=== PATIENT | female | born 1995 | race Caucasian/White ===

== ENCOUNTER 2024-10-23 14:09 | Emergency (ER) | payer SELFPAY ==
--- OUTSIDE RECORDS SUMMARY | 2013-03-25 11:13 | XMS_ITS | Continuity of Care Document ---
Author Organization [facility] Address [address] [place] [id number] Phone Care Team Providers Care Infantry Indirect Fire Crewmember Name Role Phone Yordan Sheets MD Unavailable Unavailable Allergies, Adverse Reactions, Alerts Substance Reaction Status Criticality No Known allergies Medications Medication Instructions Dosage Effective Dates (start - stop) Status Comments Zomig 2.5 mg tablet take 1 tablet (2.5MG ) by oral route once; if headache returns, the dose may be repeated after 2 hours, not to exceed 10 mg within 24 hours 2.5 MG - Active Procedures Procedure Date OFFICE/OUTPATIENT VISIT, EST OFFICE/OUTPATIENT VISIT, EST EEG, AWAKE AND DROWSY OFFICE/OUTPATIENT VISIT, NEW Advance Directives Directive Yes / No Effective Date File Name No Information Encounters Encounter Description Practice Location Reason(s) For Visit Diagnoses Date Provider Providers Copied on Encounter Yordan Sheets M.D., P.A., [address] [place] [address], [id number], tel:[phone] Yordan Sheets M.D., P.A. [place] No Information Sudeep Farr. [address] [place] [address], [id number], . tel:[phone] OFFICE/OUTPATI ENT VISIT, EST Yordan Sheets M.D., P.A., [address] [place] [address], [id number], tel:[phone] Yordan Sheets M.D., P.A. [facility] Sudeep Farr. [address] [place] [address], [id number], [place]. tel:[phone] Referring Provider: Mirian jon [place], [place]. OFFICE/OUTPATI ENT VISIT, EST Yordan Sheets M.D., P.A., [address] [place] [address], [id number], tel:[phone] Yordan Sheets M.D., P.A. [place] eeg (chief complaint) [facility] Sude[facility]. [address] [place] [address], [address] [place] [address], [place]. tel:[phone] Referring Provider: [facility] [place] Yrodan Sheets M.D., P.A., [address] [place] [address], [address] [place] [address], tel:[phone] Yordan Sheets M.D., P.A. [place] No Information Sudeep Farr. [address] [place] [address], [id number], [place]. tel:[phone] Referring Provider: [place] OFFICE/OUTPATI ENT VISIT, NEW Yordan Sheets M.D., P.A., [address] [place] [address], [id number], tel:[phone] Yordan Sheets M.D., P.A. [place] seizure (new) (chief complaint) No Information Sudeep Farr. [address] [place] [address], [id number], [place]. tel:[phone] Referring Provider: [place], [place], [place]. Family History Family Member Type Diagnosis Age At Onset Mother Problem (finding) Alive and well Brother Problem (finding) Alive and well Father Problem (finding) Alive and well Payers Payer name Insurance type Covered republican ID Authoriza tion(s) [facility] [id number] Social History Type Description Quantity Date Captured Comments Sex Female Smoking Status No Information Chief Complaint And Reason For Visit No Information Reason For Referral Reason For Referral No Information History Of Present Illness Encounter Date Complaint History Of Prese nt Illness No Information Functional Status Date Functional Assessmen t No Information Instructions Date Instruction Additional Infor stanislav Call if symptoms persist Assessments Type Assessment Date No Information Patient Care Teams Name Effective Dates (start - stop) Status Members No Information
--- NOTE | ~2024-10-23 | US_ITS ---
EXAMINATION: US OB limited DATE: 10/23/2024 14:52 INDICATION: Vaginal bleeding during second trimester TECHNIQUE: Real-time ultrasound of the pelvis was performed. The interpreting radiologist was not present for the study. COMPARISON: None. FINDINGS: There is a single living fetus in breech presentation. The placenta is anterior fundal. There is a 2.1 x 0.5 cm hypoechoic region along the deep margin along the caudal placenta consistent with subchorionic hematoma. heart rate is 144 beats per minute (bpm). The amniotic fluid volume is subjectively normal. IMPRESSION: 1. Single living fetus in breech presentation with heart rate of 144 bpm. 2. 2.1 x 0.5 cm subchorionic hematoma along the caudal margin of the placenta. Reviewed, dictated and finalized at location A.
--- NOTE | 2024-10-23 14:13 | ED_ITS ---
HPI - Female Genitourinary General Chief complaint: Vaginal Bleeding Stated complaint: Bleeding Time Seen by Provider: 10/23/24 14:13 History of Present Illness HPI Narrative: 29-year-old female with her 1st of 19 weeks was recently admitted to [facility] from 10/16/2024 to 10/22/2024 for questionable placental detachment. Today the patient passed a -- large blood clot vaginally. It measured around the size of her palm. Subsequently the patient has been having some bloody secretions. No abdominal pain/ cramps. No back pain. No abdominal tenderness. MD elicited complaint: vaginal bleeding Pertinent past history: other ( ) Onset (ago): hour(s) ( 8 hours) Vaginal bleeding: moderate Exacerbating factors: none Relieving factors: none Associated symptoms: denies other symptoms Treatment prior to arrival: none Patient : Yes Related Data : 1 Allergies Allergy/AdvReac Type Severity Reaction Status Date / Time No Known Allergies Allergy Verified 10/23/24 14:13 Review of Systems 2 Review of Systems: All systems reviewed & are unremarkable except as noted in HPI and below Exam 2 Narrative: blood pressure I 15/80 heart rate of 102. Const: General: no acute distress Orientation/consciousness: patient oriented x3 Limitations: no limitations HENMT: Head: normal to inspection Ears: external ears normal F mary jo/Nose/Sinus: Normal external nose present Face and sinus: normal facial exam Mouth: Yes Normal oral and palatal mucosa present Throat: posterior oropharynx normal Eyes: Conjunctivae: conjunctivae normal Pupils: Equal, round and reactive pupils present EOM: EOMs intact bilaterally Direct Ophthalmoscopy: no photophobia Neck: Neck: normal visual inspection, no lymphadenopathy and no meningeal signs Chest: Chest palpation & inspection: normal inspection of the chest Resp: Effort & Inspection: normal respiratory effort Auscultation: clear to auscultation bilaterally Cardio: Rate: regular rate Rhythm: regular rhythm GI: Inspection: distended GI Palp: Yes Soft to palpation Other: Gravid uterus at the level of the umbilicus. Nontender FHS 150 : General: Yes no CVA tenderness Back/Spine/Pelvis: Back: no CVA tenderness Skin: General skin exam: normal color Rashes: no rashes Neuro: General: patient oriented x3, moves all extremities, no meningeal signs, no focal motor deficits and CN's II-XI intact bilaterally Cranial nerves: Yes Nystagmus not present Speech: normal speech Gait exam (Neuro): Normal gait present Extrem: General: normal to inspection and no clubbing, cyanosis or edema Psych: Appearance: grossly normal Mental Status: mental status grossly normal Affect: normal affect Attitude: cooperative Course Course Emergency Course: threatened miscarriage Placental separation-- ultrasound revealed 2.1 cm X 0.5 cm subchorionic hematoma at the caudal edge of the placenta. anemia-- 9.8/28.3 Vital Signs Vital signs: Vital Signs Temperature 36.8 C 10/23/24 14:14 Pulse Rate 102 H 10/23/24 14:14 Respiratory Rate 20 10/23/24 14:14 Blood Pressure 115/80 10/23/24 14:14 Pulse Oximetry 98 10/23/24 14:14 Oxygen Delivery Room Air 10/23/24 14:14 Temperature 36.7 C 10/23/24 14:55 Pulse Rate 87 10/23/24 14:55 Respiratory Rate 20 10/23/24 14:55 Blood Pressure 115/73 10/23/24 14:55 Pulse Oximetry 100 10/23/24 14:55 Oxygen Delivery Room Air 10/23/24 14:55 MDM - Female Genitourinary MDM Narrative Medical decision making narrative: placental separation/subchorionic hematoma threatened miscarriage anemia Differential Diagnosis Differential diagnosis: Likely other ( miscarriage, placenta previa) Medical Records Attestation: I reviewed the patient's medical records. Lab Data Attestation: I reviewed the patient's lab results. 10/23/24 15:38 10/23/24 15:38 Labs: Lab Results 10/23/24 10/23/24 Range/Units 14:55 15:38 WBC 12.4 H (4.8-10.8) K/mm3 RBC 3.17 L (4.20-5.40) M/mm3 Hgb 9.8 L (12.0-15.0) g/dL Hct 28.3 L (35.0-49.0) % MCV 89.3 (78.0-102.0) fL MCH 30.9 (27.0-31.0) pg MCHC 34.6 (32-36) g/dL RDW 12.9 (11.6-14.4) % Plt Count 274 (150-420) K/mm3 MPV 10.0 (9.2-11.8) fl Immature Gran % (Auto) 0.3 H (0.0-0.0) % Neut % (Auto) 79.6 H (50.0-70.0) % Lymph % (Auto) 14.2 L (18.0-42.0) % [place] % (Auto) 5.2 (2.0-11.0) % Eos % (Auto) 0.5 L (1.0-6.0) % Baso % (Auto) 0.2 (0.0-1.0) % Lymph # (Auto) 1.75 (1.10-4.50) K/mm3 [place] # (Auto) 0.64 (0.10-0.90) K/mm3 Eos # (Auto) 0.06 (0.02-0.50) K/mm3 Baso # (Auto) 0.03 (0.00-0.10) K/mm3 Abs Immat Gran (auto) 0.04 H (0.00-0.00) K/mm3 Absolute Neuts (auto) 9.84 H (1.70-7.20) K/mm3 Absolute Nucleated RBC 0.00 (0.00-0.00) K/mm3 Nucleated RBC % 0.0 (0-0.0) % Sodium 137 (137-145) mmol/L Potassium 3.8 (3.4-5.0) mmol/L Chloride 105 (98-107) mmol/L Carbon Dioxide 23 (22-30) mmol/L Anion Gap 9 (4-12) mmol/L BUN 6 L (7-17) mg/dL Creatinine 0.36 L (0.7-1.0) mg/dL Estim Creat Clear Calc 147 ml/min Estimated GFR > 60 (59 - ) Glucose 79 (65-110) mg/dL Calculated Osmolality 280 L (285-295) mOsm/kg Calcium 9.2 (8.4-10.2) mg/dL Total Bilirubin 0.7 (0.2-1.3) mg/dL AST 30 (14-36) U/L ALT 11 (6-35) U/L Alkaline Phosphatase 48 (38-126) U/L Total Protein 6.9 (6.3-8.2) g/dL Albumin 3.8 (3.5-5.1) g/dL Urine Color Light yellow (Yellow) Urine Appearance Clear (Clear) Urine pH 6.5 (5.0-8.0) Ur Specific [place] 1.020 (1.010-1.020) Urine Protein Negative (Negative) Urine Glucose (UA) Negative (Negative) Urine Ketones 1+ H (Negative) Ur Blood (Man) 2+ H (Negative) Urine Nitrate Negative (Negative) Urine Bilirubin Negative (Negative) Urine Urobilinogen 0.2 (0.2-1.0) mg/dL Leukocyte Esterase Rfl Negative (Negative) FRANCISCO/UL Urine RBC 6-10 H (0-2) /hpf Urine WBC None seen (0-3) /hpf Ur Squamous Epith Cells Few (Few) /hpf Urine Bacteria Trace (None) /hpf Urine Mucus Moderate H /lpf Discharge Plan Discharge Clinical Impression: Threatened Placental separation Qualifiers: Trimester: second trimester Qualified Code(s): O45.92 - Premature separation of placenta, unspecified, second trimester Anemia affecting Qualifiers: Trimester: second trimester Qualified Code(s): O99.012 - Anemia complicating , second trimester Patient Disposition: Home Condition: Stable Instructions: Antibiotic Form, Threatened Miscarriage (ED) Patient Language: Croatian Follow-up/Referrals: UNKNOWN,DOCTOR [Non-Staff] Time of Disposition: 16:04
[2024-10-23 14:14] VITALS: BP 115/80; PULSE 102; RESP 20; TEMP 36.8; O2SAT 98
[2024-10-23 14:55] VITALS: BP 115/73; PULSE 87; RESP 20; TEMP 36.7; O2SAT 100
[2024-10-23 15:08] LABS: Add Urine Microscopic? YES; Appearance Urine Clear (Clear); Glucose Urine UA Negative (Negative); Leukocyte Esterase Ur Negative LEU/UL (Negative); Nitrate Urine Negative (Negative); Specific Grav Ur 1.020 (1.010-1.020)
--- OUTSIDE RECORDS SUMMARY | 2024-10-23 15:12 | XMS_ITS | Encounter Summary ---
Author Organization [facility] Healthcare Address [address] [place] [address] Care Team Providers Care Cabinetmaker Helper Name Role Phone Unknown, Notinfile Primary Care Provider Unavail able Encounter Details Date Type Department Care Team (Late st Contact Info) Description 10/23/2024 Telephone Obstetrics and Gynecology Clinic [address] [facility] 3rd Floor [address] [place] [address] Shawna Duke Social History Tobacco Use Types Packs/Day Years Used Date Smoking Tobacco: Never Smokeless Tobacco: Never Alcohol Use Standard Drinks/Week Comments Never 0 (1 standard drink = 0.6 oz pur e alcohol) PHQ-2 Answer Date Recorded PHQ-2 Total Score (If total score is 3 or more points, staff should administer the PHQ-9) 0 10/19/2024 PHQ-9 Answer Date Recorded PHQ-9 Total Score 0 10/19/2024 Humiliation, Afraid, Rape, and Kick questionnair e Answer Date Recorded Within the last year, have y ou been afraid of your partner or ex-partner? No 10/19/2024 Within the last year, have y ou been humiliated or emotionally abused in other ways by your partner or ex-partner? No Within the last year, have y ou been kicked, hit, slapped, or otherwise physically hurt by your partner or ex-partner? No 10/19/2024 Within the last year, have y ou been raped or forced to have any kind of sexual activity by your partner or ex-partner? No 10/19/2024 Social Connection and Isolation Panel Answer Date Recorded In a typical week, how many times do you talk on the phone with family, friends, or neighbors? More than three times a week 10/19/2024 How often do you get togethe r with friends or relatives? Three times a week 10/19/2024 How often do you attend chur ch or restorationism services? Never 10/19/2024 Do you belong to any clubs o r organizations such as gnosticist groups, unions, fraternal or athletic groups, or school groups? No 10/19/2024 How often do you attend meet ings of the clubs or organizations you belong to? Never 10/19/2024 Are you , , di vorced, , never , or living with a partner? 10/19/2024 AUDIT-C Answer Date Recorded Q1: How often do you have a drink containing alcohol? Never 10/19/2024 Q2: How many drinks containi ng alcohol do you have on a typical day when you are drinking? Patient does not drink Q3: How often do you have si x or more drinks on one occasion? Never 10/19/2024 Overall Financial Resource Strain (CARDIA) Answe r Date Recorded How hard is it for you to pa y for the very basics like food, housing, medical care, and heating? Not hard at all 10/19/2024 [facility] [place] [facility] - Occupational Stress Questionnaire Answer Date Recorded Do you feel stress - tense, restless, nervous, or anxious, or unable to sleep at night because your mind is troubled all the time - these days? Only a little 10/19/2024 Exercise Vital Sign Answer Date Recorde d On average, how many days pe r week do you engage in moderate to strenuous exercise (like a brisk walk)? 0 days 10/19/2024 On average, how many minutes do you engage in exercise at this level? 0 min 10/19/2024 Hunger Vital Sign Answer Date Recorded Within the past 12 months, y ou worried that your food would run out before you got the money to buy more. Never true 10/20/19 25 Within the past 12 months, t he food you bought just didn't last and you didn't have money to get more. Never true 10/19/2024 PRAPARE - Transportation Answer Date Re corded In the past 12 months, has l ack of transportation kept you from medical appointments or from getting medications? No 09/28 In the past 12 months, has l ack of transportation kept you from meetings, work, or from getting things needed for daily living? No 10/19/2024 Housing Stability Vital Sign Answer Markus e Recorded In the last 12 months, was t here a time when you were not able to pay the mortgage or rent on time? No 10/19/2024 In the past 12 months, how m any times have you moved where you were living? 1 10/19/2024 At any time in the past 12 m [facility], were you homeless or living in a senior care (including now)? No 10/19/2024 [facility] Utilities Answer Date Recorded In the past 12 months has th e electric, gas, oil, or water company threatened to shut off services in your home? No 10/19/2024 Personal Safety Answer Date Recorded Have you ever been in or are you currently in a harmful physical or emotional relationship or is someone making you feel afraid or unsafe? Denies 10/19/2024 Estimated Date of Delivery Comme nts Yes 03/22/2025 Based on last me nstrual period of 06/15/2024 Sex and Gender Information Value Date Recorded Sex Assigned at Not on file Legal Sex Female 9:25 PM CDT Gender Identity Not on file Sexual Orientation Not on file documented as of this encounter Miscellaneous Notes * Telephone Encounter - Shawna Duke - 10/23/2024 1:25 PM CDT Pt called stating she's experiencing heaving bleeding. Pt stated she lives [place] hour away form the [facility] and our clinic. Pt was advised to go to her local ED. Contact Number [phone] documented in this encounter Plan of Treatment Upcoming Encounters Date Type Department Care Team (Late st Contact Info) Description 03/22/2025 Hospital Encounter [address] [phone] Karin Pitt MD [address] [address] documented as of this encounter Visit Diagnoses Not on filedocumented in this encounter Care Teams Cabinetmaker Helper Relationship Specialty Start Date End Date Unknown, Notinfile PCP - General 10/18/24 documented as of this encounter
--- OUTSIDE RECORDS SUMMARY | 2024-10-23 15:13 | XMS_ITS | Clinical Summary ---
Author Organization [facility] Address [address] [place] [address] Care Team Providers Care Tin Assorter Name Role Phone Unknown, Notinfile Primary Care Provider Unavail able Allergies No known active allergies Medications PNV no.[id number] ega-3-dha 29 mg iron- 1 mg-200 mg combo pack Take by mouth Active Active Problems Problem Noted Date Diagnosed Date Premature cervical dilation in second trimester 10/18/2024 Estimated Date of Delivery Comme nts Yes 03/22/2025 Based on last me nstrual period of 06/15/2024 Encounters Date Type Department Care Team Description 10/23/2024 Telephone Obstetrics and Gynecology Clinic [address] [facility] 3rd Floor [address] [place] [id number] Lidia Dukemark 10/18/2024 9:25 PM CDT - 10/20/2024 10:59 AM CDT Hospital Encounter [address] [phone] Dante Sidhu MD Baker, Haley Elise, MD Discharge Disposition: Discharge to home or self care from Last 3 Months Surgical History Surgery Date Site/Laterality Comments CHOLECYSTECTOMY 07/29/2023 - 08/27/2023 Medical History Medical History Date Comments Anxiety Depression Social History Tobacco Use Types Packs/Day Years Used Date Smoking Tobacco: Never Smokeless Tobacco: Never Tobacco Cessation:Counseling Given: Not Answered Alcohol Use Standard Drinks/Week Comments Never 0 [...] often do you attend chur ch or yazdanism services? Never 10/19/2024 Do you belong to any clubs o r organizations such as quaker groups, unions, fraternal or athletic groups, or [...] and heating? Not hard at all 10/19/2024 [facility] ional [facility] - Occupational Stress [...] any time in the past 12 m [facility], were you homeless or living in a fdc (including now)? No 10/19/2024 [facility] Utilities Answer Date Recorded In the past 12 months has e electric, gas, oil, or water company [...] on file Sexual Orientation Not on file Obstetrics History Para Term AB IAB SAB Ectopic Multiple Livin g Live Births 1 Date Outcome GA Total Labor Labor/2nd/3rd Weight Sex Type Anes PTL Judy A1 A5 Name Clin Current Summary Episode Dates Number of Fetuses Estimated Date of Delivery 10/18/2024 - Present (10/23/2024) 03/22/2025 (set by Nicki Sierra RN on 10/18/2024 based on Last Menstrual Period on 06/15/2024) Dating Summary Based On CABRERA GA Diff Last Menstrual Period on 06/15/2024 03/22/2025 Working Ultrasound on 08/21/2024 03/26/2025 -4d GA:9w0d Vitals Date GA Fund Present FHR Mvmt BP Weight Edema Alb Glu Ket Dil/ Eff/Sta 18w1d Inpatient data not displayed here. See encounter summary. Notes Progress Notes - Hospital En counter - 10/20/2024 - GA:18w1d 10/20/2024 - 18w1d - Pia Fischer DO Antepartum Progress Note Gestational Age: 18w1d Admission Date: 10/18/2024 Length of stay: 2 Admission Diagnosis: vaginal bleeding Brief HPI: 29 y.o. female at 18w1d gestation admitted for vaginal bleeding SUBJECTIVE - Overnight, reported mild cramping that has since resolved - States she is having a small amount of bleeding when wiping, but is mostly old blood - No LOF Review of Systems Negative except as per above. OBJECTIVE Vitals: Temp Min: 36.5 C (97.7 F) Max: 36.8 C (98.3 F) Pulse Min: 72 Max: 94 BP Min: 91/51 Max: 110/62 Resp Min: 16 Max: 16 SpO2 Min: 95 % Max: 99 % FHR: +DTs Physical Exam General: No acute distress. Cardiovascular: Normal rate, regular rhythm Lungs: Non-labored. Abdomen: Soft, non-tender, gravid. Extremities: Warm and well-perfused. Pelvic: Deferred. Neurologic: Alert and oriented x4, non-focal Lab Review: Recent Results (from the past 24 hours) POCT glucose Collection Time: 10/19/24 1:02 PM Result Value Ref Range Glucose, POC 99 70 - 199 mg/dL ASSESSMENT/PLAN Keara Yin is a 29 y.o. at 18w1d admitted for vaginal bleeding #c/f Abruption #threatened #Vaginal bleeding - Presents with cramping and bleeding since 1999 on 10/18 - Cramping mild, bleeding about 1 pad over 4 hours - HDS, Hb 10.2, Plt 257 - denies recent STI, UTis - SSE: 1-1.5 cm dialted with membranes and small amount of blood at OS - SVE: 1cm dilated, soft - Counseled that given clinical information, will likely result in a loss. - Currently not indicated for cerclage given c/f abruption - Provided options counseling. Pt did not want to make any decisions at this time - GC/CT/Trich neg - UCx pending Plan: - f/u UCx - daily labs - Pad counts #Anxiety/depression - on no meds #Hx of chlamydia - s/p treatment #FWB: - BSUS: breech presentation, +DT - LR NIPT - BMZ, MG, PCN not indicated - Peds consult n/a - MONITORING PLAN: daily DT #MWB #RNI #VZV Unknown - PNL: Rh +/Ab neg/HIV neg/Rub NI/VZVunk/RPR neg/HepB neg/Hep C neg/GC/CT neg/neg - 1 hr GTT, TDAp n/a - Rhogam n/a - GBS deferred - MOD/MOF/MOC TBD - Antepartum VTE Prophylaxis: SCDs Pia Fischer DO Resident Physician, PGY-2 Department of Obstetrics & Gynecology Cosigned by Jane Nguyen MD at 10/21/2024 4:34 PM CDT Associated attestation - Jane Nguyen MD - 10/21/2024 4:34 PM CDT I have seen and examined the patient on 10/20/2024. I agree with the findings and plan of care as documented in the resident's/fellow's note. Patient admitted at 18 weeks with significant vaginal bleeding episode that appears to have resolved. Explained potential complications of placental abruption and emphasized the importance of establishing care locally. We discussed care providers in [place], [place] as being closest to her in [place]. Plan discharge home as VB is minimal, reviewed return precautions. Jane Nguyen MD 10/19/2024 - 18w0d - Little Sierra RN Pt arrived to [facility] with bleeding VSS Speculum Exam MD/DIRECT SUPPORT WORKER assessment per Suhas SOLORZANO and Vincent PGY4 Cervix visually dilated during pelvic exam IV placed via EMS Blood and urine labs drawn and sent Pt admitted to [facility] 10/19/2024 - w0d - Suhas Quezada NP Obstetrics H&P Chief Complaint: Vaginal bleeding Estimated Date of Delivery: 03/22/25 Provider: OSH Provider HPI: Keara Yin is a 29 y.o. female at 17w6d gestation, dated by L=1. Patient to [facility] with episode of vaginal bleeding that started around 7:55pm that saturated her underwear and pants with cramping. She also endorses saturating 1 pad. Patient denies contractions, LOF, SOB, headache, visual changes, or N/V. Her is complicated by Anxiety, Depression, and h/o Chlamydia. Patient Denies: [x] Contractions [x] Shortness of Breath [x] Nausea/Vomitting [] Vaginal Bleeding [x] Headache [] Abdominal Pain [x] Leaking of Fluid [x] Visual changes [x] Decreased Movement OB History Para Term AB Living 1 0 0 0 0 0 SAB IAB Ectopic Multiple Live Births 0 0 0 0 0 # Outcome Date GA Lbr Chris/2nd Weight Sex Type Anes PTL Lv 1 Current TOUR BUS DRIVER/GUIDE History: Patient's last menstrual period was 06/15/2024. History of Abnormal Pap: None STD History: chlamydia, 2016 Past Medical History: Diagnosis Date Anxiety Depression Chronic hypertension: No Diabetes: No Asthma: No Past Surgical History: Procedure Laterality Date CHOLECYSTECTOMY 07/2023 Social History Tobacco Use Smoking status: Never Smokeless tobacco: Never Substance and Sexual Activity Drug use: Never Sexual activity: Yes Partners: Male Alcohol Use: Not on file Support System: Supported by Safe at home: Yes family history is not on file. Family history of bleeding or clotting disorders: No Family history of defects, genetic disorders, or developmental delay: No No Known Allergies HOME MEDICATIONS: PNV no.58-qgbo-LX-omega-3-dha 29 mg iron- 1 mg-200 mg combo pack Review of Sys: Negative except per HPI Vitals: Temp: [36.9 C (98.4 F)] 36.9 C (98.4 F) Pulse: [88] 88 Resp: [18] 18 BP: (107)/(69) 107/69 Physical Exam: General: NAD, mood appropriate Cardiovascular: Regular rate and rhythm Pulmonary: Clear to ausculation bilaterally Abdomen: Non-tender, no guarding, or rebound tenderness Extremities: Warm and well perfused Speculum Exam: bright red blood in vaginal vault Cervix: appears dilated Monitoring: FHTs 150 bpm Labs: Unknown Lab Results Component Value Date WBC 12.08 (H) 10/18/2024 HGB 10.2 (L) 10/18/2024 HCT 29.5 (L) 10/18/2024 MCV 87.0 10/18/2024 LABPLAT 257 10/18/2024 Chemistry Lab Results Component Value Date SODIUM 138 10/18/2024 POTASSIUM 3.5 10/18/2024 CHLORIDE 104 10/18/2024 CO2 22 10/18/2024 ANIONGAP 12 10/18/2024 BUNSER 5 (L) 10/18/2024 CREATININE 0.38 (L) 10/18/2024 GLUCOSE 78 10/18/2024 CALCIUM 9.4 10/18/2024 BILITOT 0.4 10/18/2024 ALBUMIN 3.7 10/18/2024 GFRNAA >90 10/18/2024 ALKPHOS 66 10/18/2024 AST 12 10/18/2024 ALT 9 10/18/2024 Assessment and Plan #vaginal bleeding -VSS, Afebrile -Speculum Exam: bright red blood in vaginal vault, removed with 1 procto swab Cervix: appears dilated -CBC: 12.08 WBC, 10.2 Hgb, 29.5 Hct, 257 PLT -CMP: 0.38 Creatinine, 9 ALT, 12 AST -Type/Screen: A Positive #FWB -FHTs 150 bpm Plan discussed with Dr. Kaur admit to APU for observation. See doctor H&P for plan of care. Suhas Norris NP 10/18/24 Last Filed Vital Signs Vital Sign Reading Time Taken Comments Blood Pressure 104/61 10/20/2024 8:46 AM CDT Pulse 83 10/20/2024 8:46 AM CDT Temperature 36.8 C (98.2 F) 10/20/2024 8:46 AM CDT Respiratory Rate 18 10/20/2024 8:46 AM CDT Oxygen Saturation 98% 10/20/2024 8:46 AM CDT Inhaled Oxygen Concentration - - Weight 59 kg (130 lb) 10/18/2024 9:30 PM CDT Height - - Body Mass Index - - Plan of Treatment Upcoming Encounters Date Type Department Care Team (Late st Contact Info) Description 03/22/2025 Hospital Encounter [address] [phone] Karin Pitt MD [address] [id number] Health Maintenance Due Date Last Done Comments Cervical Cancer Screening 1996 Hepatitis C Screening 1996 Varicella Vaccines (1 of 2 - 13+ 2-dose series) 2009 Regular Well Visit/Exam 18-64 2014 Influenza Vaccine (#1) 2024 Depression Screening 10/18/2025 10/18/2024, 10/19/19 25 DTaP/Tdap/Td Vaccine (8 - Td or Tdap) 01/03/2033 01/03/2023, 03/20/2009, 10/09/2001, Additional history exists Hepatitis B Screening Completed 02/11/1997 , 1996, 1996 HPV Vaccines Completed 02/25/2010, 09/27, 03/20/2009 Pneumococcal vaccine <65 Aged Out No longer eligible based on patient's age to complete this topic Procedures Procedure Name Priority Date/Time Associated Diagnosis Comments EGFR Routine 10/20/2024 6:30 AM CDT BASIC METABOLIC PANEL Routine 10/20/2024 6:30 AM CDT CBC WITHOUT DIFFERENTIAL Routine 10/20/2024 6:30 AM CDT POCT GLUCOSE DEVICE Routine 10/19/2024 1 :02 PM CDT URINE CULTURE Routine 10/19/2024 5:28 AM CDT EGFR Routine 10/19/2024 4:58 AM CDT BASIC METABOLIC PANEL Routine 10/19/2024 4:58 AM CDT CBC WITHOUT DIFFERENTIAL Routine 10/19/2024 4:58 AM CDT TRICHOMONAS VAGINALIS PCR Routine 10/19/2024 12:21 AM CDT N. GONORRHOEAE/C. TRACHOMATIS AMPLIFICATION Routine 10/19/2024 12:21 AM CDT B CHECK SAMPLE STAT 10/18/2024 11:21 PM CDT POCT URINALYSIS (CLINITEK) Routine 10/18/2024 11:04 PM CDT EGFR STAT 10/18/2024 10:11 PM CDT DIFFERENTIAL AUTO STAT 10/18/2024 10: 11 PM CDT TYPE AND SCREEN STAT 10/18/2024 10:11 PM CDT COMPREHENSIVE METABOLIC PANEL STAT 10/18/2024 10:11 PM CDT CBC WITH AUTO DIFFERENTIAL STAT 10/18/2024 10:11 PM CDT from Last 3 Months Results * eGFR (10/20/2024 6:30 AM CDT) Pathologist [facility] eGFR >90 >=60 mL/min/1. 73 m2 Comment: Interpretive Data Reference Interval Normal >/= 90 mL/min/1.73m2 Mildly decreased* 60 - 89 mL/min/1.73m2 Mildly to moderately decreased 45 - 59 mL/min/1.73m2 Moderately to severely decreased 30 - 44 mL/min/1.73m2 Severely decreased 15 - 29 mL/min/1.73m2 Kidney Failure < 15 mL/min/1.73m2 *Relative to young adult level Estimated glomerular filtration rate is determined by the 2020 CKD-EPI equation recommended by the National Kidney Foundation (A Unifying Approach to GFR Estimation: Recommendations of the NKF-ASK Task Force on Reassessing the Inclusion of Race in Diagnosing Kidney Disease, JASN 2020). The CKD-EPI equation should not be used for patients with unstable renal function and has not been validated in children and those over 70. Current interpretive data was last reviewed 2020. Blood 10/20/2024 6:30 AM CDT 10/20/2024 7:56 AM CDT us Dante Sidhu MD LAB BLOOD ORDERABLES Final Result [facility] Department [place] [address] * (ABNORMAL) CBC without differential (10/20/2024 6:30 AM CDT) Pathologist [facility] WBC 9.89 3.80 - 9.90 K/cumm Hgb 9.7(L) 11.9 - 15.5 g/dL [facility] Hct 27.0(L) 35.6 - 45.5 % [facility] Plt 270 150 - 400 K/cumm [facility] MPV 10.7 9.1 - 12.3 fL [facility] RBC 3.16(L) 3.90 - 5.20 M/cumm [facility] MCV 85.4 81.3 - 96.4 fL [facility] MCH 30.7 27.1 - 33.3 pg [facility] MCHC 35.9(H) 32.3 - 35.7 g/dL [facility] RDW CV 13.1 11.1 - 14.9 % [facility] RDW SD 40.3 35.7 - 48.1 fL [facility] NRBC abs 0.00 0.00 - 0.01 K/cumm [facility] Blood 10/20/2024 6:30 AM CDT 10/20/2024 7:56 AM CDT Dante Sidhu MD LAB BLOOD ORDERABLES Final Result [facility] Department [place] [address] * (ABNORMAL) Basic metabolic panel (10/20/2024 6:30 AM CDT) Sodium 140 135 - 145 mmol/L Potassium, pl 3.5 3.3 - 4.9 mmol/L [facility] Chloride 106 97 - 110 mmol/L [facility] CO2 24 22 - 32 mmol/L [facility] Anion gap 10 2 - 15 mmol/L [facility] BUN 6 6 - 25 mg/dL [facility] Creatinine 0.42(L) 0.60 - 1.10 mg/dL [facility] Glucose 74 70 - 199 mg/dL [facility] Comment: Interpretive Data Fasting glucose >/= 126 mg/dl is diagnostic for diabetes. Fasting is defined as no caloric intake for at least 8 hours. Fasting glucose between 100 mg/dl to 125 mg/dl is diagnostic of prediabetes. In a patient with classic symptoms of hyperglycemia or hyperglycemic crisis, a random glucose >/= 200 mg/dl is diagnostic for diabetes. In the absence of unequivocal hyperglycemia, results should be confirmed by repeat testing. The classification and Diagnosis of Diabetes Diabetes Care 202; 46: S19-S40. Current interpretive data was last revised 2022. Calcium 9.2 8.5 - 10.3 mg/dL [facility] Blood 10/20/2024 6:30 AM CDT 10/20/2024 7:56 AM CDT Dante Sidhu MD LAB BLOOD ORDERABLES Final Result Performing Organization Address [facility] Co de Phone Number [facility] [place] [address] * POCT glucose (10/19/2024 1:02 PM CDT) Glucose, POC 99 70 - 199 mg/dL Blood 10/19/2024 1:02 PM CDT 10/19/2024 1:02 PM CDT Karin Pitt MD LAB POCT ORDERABLES - DEVIC E Final Result Performing Organization Address [facility] de Phone Number [facility] [place] [address] * Urine culture Urine, bladder (10/19/2024 5:28 AM CDT) Report Final Report: Less than 100,000 colonies/mL (clinically insignificant growth based on current clinical standards) Organism (CLINICALLY INSIGNIFICANT GROWTH [facility] Urine, bladder 10/19/2024 5: 28 AM CDT 10/19/2024 5:46 AM CDT Narrative [facility] - 10/20/2024 6:28 AM CDT Indications for Culture:-> patient Testing performed by [facility] ([phone]) Karin Pitt MD LAB MICROBIOLOGY - GENERAL ORDERABLES Final Result Performing Organization Address [facility] Co de Phone Number [facility] [place] [address] * eGFR (10/19/2024 4:58 AM CDT) Pathologist [facility] eGFR >90 >=60 mL/min/1. 73 m2 Comment: Interpretive Data Reference Interval Normal >/= 90 mL/min/1.73m2 Mildly decreased* 60 - 89 mL/min/1.73m2 Mildly to moderately decreased 45 - 59 mL/min/1.73m2 Moderately to severely decreased 30 - 44 mL/min/1.73m2 Severely decreased 15 - 29 mL/min/1.73m2 Kidney Failure < 15 mL/min/1.73m2 *Relative to young adult level Estimated glomerular filtration rate is determined by the 2020 CKD-EPI equation recommended by the National Kidney Foundation (A Unifying Approach to GFR Estimation: Recommendations of the NKF-ASK Task Force on Reassessing the Inclusion of Race in Diagnosing Kidney Disease, JASN 2020). The CKD-EPI equation should not be used for patients with unstable renal function and has not been validated in children and those over 70. Current interpretive data was last reviewed 2020. Blood 10/19/2024 4:58 AM CDT 10/19/2024 7:42 AM CDT us Dante Sidhu MD LAB BLOOD ORDERABLES Final Result [facility] Department [place] [address] * (ABNORMAL) CBC without differential (10/19/2024 4:58 AM CDT) [facility] WBC 13.37(H) 3.80 - 9.90 K/cumm Hgb 10.7(L) 11.9 - 15.5 g/dL [facility] Hct 30.5(L) 35.6 - 45.5 % [facility] Plt 297 150 - 400 K/cumm [facility] MPV 11.1 9.1 - 12.3 fL [facility] RBC 3.54(L) 3.90 - 5.20 M/cumm [facility] MCV 86.2 81.3 - 96.4 fL [facility] MCH 30.2 27.1 - 33.3 pg [facility] MCHC 35.1 32.3 - 35.7 g/dL [facility] RDW CV 12.9 11.1 - 14.9 % [facility] RDW SD 40.4 35.7 - 48.1 fL [facility] NRBC abs 0.00 0.00 - 0.01 K/cumm [facility] Blood 10/19/2024 4:58 AM CDT 10/19/2024 7:42 AM CDT Dante Sidhu MD LAB BLOOD ORDERABLES Final Result [facility] Department [place] [address] * (ABNORMAL) Basic metabolic panel (10/19/2024 4:58 AM CDT) Sodium 139 135 - 145 mmol/L Potassium, pl 3.7 3.3 - 4.9 mmol/L [facility] Chloride 106 97 - 110 mmol/L [facility] CO2 23 22 - 32 mmol/L [facility] Anion gap 10 2 - 15 mmol/L [facility] BUN 6 6 - 25 mg/dL [facility] Creatinine 0.43(L) 0.60 - 1.10 mg/dL [facility] Glucose 64(L) 70 - 199 mg/dL [facility] Comment: Interpretive Data Fasting glucose >/= 126 mg/dl is diagnostic for diabetes. Fasting is defined as no caloric intake for at least 8 hours. Fasting glucose between 100 mg/dl to 125 mg/dl is diagnostic of prediabetes. In a patient with classic symptoms of hyperglycemia or hyperglycemic crisis, a random glucose >/= 200 mg/dl is diagnostic for diabetes. In the absence of unequivocal hyperglycemia, results should be confirmed by repeat testing. The classification and Diagnosis of Diabetes Diabetes Care 2021; 46: S19-S40. Current interpretive data was last revised 2022. Calcium 9.2 8.5 - 10.3 mg/dL [facility] Blood 10/19/2024 4:58 AM CDT 10/19/2024 7:42 AM CDT Dante Sidhu MD LAB BLOOD ORDERABLES Final Result Performing Organization Address [facility] Co de Phone Number [facility] [place] [address] * N. gonorrhoeae/C. trachomatis Amplification Urine (10/19/2024 12:21 AM CDT) [facility] C. trachomatis Not Detected Not Detected [facility] N. gonorrhoeae Not Detected Not Detected [facility] Comment: Interpretive Data This assay detects Chlamydia trachomatis and Neisseria gonorrhoeae by nucleic acid amplification testing (NAAT). This assay has been cleared by the [place] Food and Drug administration. The performance characteristics of this test have been verified by the [facility] Molecular Infectious Disease laboratory. The performance characteristics of this test have not been evaluated in individuals less than 14 years of age. Current Interpretive Data last revised 2023. Urine (None) 10/19/2024 12:2 1 AM CDT 10/19/2024 12:36 AM CDT Karin Pitt MD LAB MICROBIOLOGY - GENERAL ORDERABLES Final Result Performing Organization Address [facility] de Phone Number [facility] [place] [address] [facility] * Trichomonas vaginalis PCR Urine (10/19/2024 12:21 AM CDT) [facility] Trichomonas DNA Not Detected Not Detected [facility] Urine 10/19/2024 12:2 1 AM CDT 10/19/2024 12:36 AM CDT Narrative [facility] - 10/19/2024 1:50 AM CDT Interpretive Data: This assay detects Trichomonas vaginalis by nucleic acid amplification testing (NAAT). This assay has been cleared by the [place] Food and Drug administration. The performance characteristics of this test have been verified by the [facility] Molecular Infectious Disease laboratory. Excess blood in specimens may be inhibitory and result in false negative results. The performance of this test has not been evaluated in women or individuals less than 18 years of age. us Karin Pitt MD LAB MICROBIOLOGY - GENERAL ORDERABLES Final Result [facility] Department [place] [address] [facility] * Check Sample (10/18/2024 11:21 PM CDT) Pathologist [facility] ABO Rh A Positive [facility] OTHER 10/18/2024 11:2 1 PM CDT 10/18/2024 11:33 PM CDT us Dante Sidhu MD LAB BLOOD ORDERABLES Final Result Performing Organization Address [facility] de Phone Number [facility] [place] [address] [facility] * (ABNORMAL) POCT urinalysis (Clinitek) (10/18/2024 11:04 PM CDT) Color, ur, POC Yellow Yellow Clarity, UA, POC Clear Clear [facility] Glucose, ur, POC Negative Negative [facility] Bilirubin, ur, POC Negative Negative [facility] Ketones, ur, POC 1+(A) Negative [facility] Specific gravity, ur, POC 1.010 1.010 - 1.025 [facility] Blood, ur, POC 3+(A) Negative [facility] pH, ur, POC 7.0 [facility] Comment: Interpretive Data Urine pH is affected by diet, medications, systemic acid-base disturbances, and renal tubular function. pH may affect urinary stone formation. For example, urine pH below 6.0 may help reduce the tendency for calcium phosphate stones and pH greater than 6.0 may reduce the tendency for uric acid stone formation. Source: [employer]. Last Revised Date: 03-09-2017 Protein, ur, POC Negative Negative [facility] Urobilinogen, ur, POC 0.2 mg/dL mg/dL [facility] Nitrites, ur, POC Negative Negative [facility] Leukocyte esterase, ur, POC Negative Negative [facility] Urine 10/18/2024 11:0 4 PM CDT 10/18/2024 11:04 PM CDT us Dante Sidhu MD LAB POCT ORDERABLES - DEVIC E Final Result Performing Organization Address [facility] Co de Phone Number [facility] Department [place] [address] * eGFR (10/18/2024 10:11 PM CDT) eGFR >90 >=60 mL/min/1. 73 m2 Comment: Interpretive Data Reference Interval Normal >/= 90 mL/min/1.73m2 Mildly decreased* 60 - 89 mL/min/1.73m2 Mildly to moderately decreased 45 - 59 mL/min/1.73m2 Moderately to severely decreased 30 - 44 mL/min/1.73m2 Severely decreased 15 - 29 mL/min/1.73m2 Kidney Failure < 15 mL/min/1.73m2 *Relative to young adult level Estimated glomerular filtration rate is determined by the 2020 CKD-EPI equation recommended by the [employer] (A Unifying Approach to GFR Estimation: Recommendations of the NKF-ASK Task Force on Reassessing the Inclusion of Race in Diagnosing Kidney Disease, JASN 2020). The CKD-EPI equation should not be used for patients with unstable renal function and has not been validated in children and those over 70. Current interpretive data was last reviewed 2020. Blood 10/18/2024 10:1 1 PM CDT 10/18/2024 10:21 PM CDT us Suhas Norris NP LAB BLOOD ORDERABLES Fin al Result Performing Organization Address [facility] de Phone Number [facility] Department [place] [address] * (ABNORMAL) Differential, auto (10/18/2024 10:11 PM CDT) Pathologist [facility] Neutrophil abs 8.78(H) 1.50 - 6.50 K/cumm Imm gran abs 0.05 0.00 - 0.10 K/cumm [facility] Lymphocyte abs 2.43 0.80 - 3.30 K/cumm [facility] Monocyte abs 0.70 0.20 - 0.80 K/cumm [facility] Eosinophil abs 0.10 0.00 - 0.50 K/cumm [facility] Basophil abs 0.02 0.00 - 0.10 K/cumm [facility] Neutrophil pct 72.7 % [facility] Comment: Interpretive Data Percent cell count reference ranges are not reported, since discordance with absolute values may lead to misinterpretation of CBC data. Current Interpretive Data was last revised on 2017. Imm gran pct 0.4 % [facility] Comment: Interpretive Data Percent cell count reference ranges are not reported, since discordance with absolute values may lead to misinterpretation of CBC data. Current Interpretive Data was last revised on 2017. Lymphocyte pct 20.1 % [facility] Comment: Interpretive Data Percent cell count reference ranges are not reported, since discordance with absolute values may lead to misinterpretation of CBC data. Current Interpretive Data was last revised on 2017. Monocyte pct 5.8 % [facility] Comment: Interpretive Data Percent cell count reference ranges are not reported, since discordance with absolute values may lead to misinterpretation of CBC data. Current Interpretive Data was last revised on 2017. Eosinophil pct 0.8 % [facility] Comment: Interpretive Data Percent cell count reference ranges are not reported, since discordance with absolute values may lead to misinterpretation of CBC data. Current Interpretive Data was last revised on 2017. Basophil pct 0.2 % [facility] Comment: Interpretive Data Percent cell count reference ranges are not reported, since discordance with absolute values may lead to misinterpretation of CBC data. Current Interpretive Data was last revised on 2017. Blood 10/18/2024 10:1 1 PM CDT 10/18/2024 10:22 PM CDT us Suhas Norris DIRECT SUPPORT WORKER LAB BLOOD ORDERABLES Fin al Result Performing Organization Address [facility] de Phone Number [facility] [place] [address] * (ABNORMAL) CBC with auto differential (10/18/2024 10:11 PM CDT) WBC 12.08(H) 3.80 - 9.90 K/cumm Hgb 10.2(L) 11.9 - 15.5 g/dL [facility] Hct 29.5(L) 35.6 - 45.5 % [facility] Plt 257 150 - 400 K/cumm [facility] MPV 10.0 9.1 - 12.3 fL [facility] RBC 3.39(L) 3.90 - 5.20 M/cumm [facility] MCV 87.0 81.3 - 96.4 fL [facility] MCH 30.1 27.1 - 33.3 pg [facility] MCHC 34.6 32.3 - 35.7 g/dL [facility] RDW CV 13.0 11.1 - 14.9 % [facility] RDW SD 40.7 35.7 - 48.1 fL [facility] NRBC abs 0.00 0.00 - 0.01 K/cumm [facility] Blood 10/18/2024 10:1 1 PM CDT 10/18/2024 10:22 PM CDT Suhas Norris DIRECT SUPPORT WORKER LAB BLOOD ORDERABLES Fin al Result Performing Organization Address [facility] de Phone Number [facility] [place] [address] * Type and screen (10/18/2024 10:11 PM CDT) ABO Rh A Positive Leeroy, indirect Negative [facility] Blood 10/18/2024 10:1 1 PM CDT 10/18/2024 10:36 PM CDT Suhas Norris NP LAB BLOOD BANK TEST ERIC STRINGER Final Result [facility] Department [place] [address] * (ABNORMAL) Comprehensive metabolic panel (10/18/2024 10:11 PM CDT) Sodium 138 135 - 145 mmol/L Potassium, pl 3.5 3.3 - 4.9 mmol/L [facility] Chloride 104 97 - 110 mmol/L [facility] CO2 22 22 - 32 mmol/L [facility] Anion gap 12 2 - 15 mmol/L [facility] BUN 5(L) 6 - 25 mg/dL [facility] Creatinine 0.38(L) 0.60 - 1.10 mg/dL [facility] Glucose 78 70 - 199 mg/dL [facility] Comment: Interpretive Data Fasting glucose >/= 126 mg/dl is diagnostic for diabetes. Fasting is defined as no caloric intake for at least 8 hours. Fasting glucose between 100 mg/dl to 125 mg/dl is diagnostic of prediabetes. In a patient with classic symptoms of hyperglycemia or hyperglycemic crisis, a random glucose >/= 200 mg/dl is diagnostic for diabetes. In the absence of unequivocal hyperglycemia, results should be confirmed by repeat testing. The classification and Diagnosis of Diabetes Diabetes Care 202; 46: S19-S40. Current interpretive data was last revised 2022. Calcium 9.4 8.5 - 10.3 mg/dL [facility] Bilirubin, total 0.4 0.1 - 1.2 mg/dL [facility] Protein, pl 7.2 6.5 - 8.5 g/dL [facility] Albumin 3.7 3.5 - 5.0 g/dL [facility] Alk phos 66 40 - 130 Units/L [facility] ALT 9 7 - 45 Units/L [facility] AST 12 10 - 45 Units/L [facility] Blood 10/18/2024 10:1 1 PM CDT 10/18/2024 10:21 PM CDT us Suhas Norris NP LAB BLOOD ORDERABLES Fin al Result [facility] Department [place] [address] from Last 3 Months Advance Directives For more information, please contact: [phone] * Full Code (Latest Code Status on File) Date Activated Date Inactivated Comments 10/18/2024 11:40 PM 10/20/2024 3:08 PM Care Teams Tin Assorter Relationship Specialty Start Date End Date Unknown, Notinfile PCP - General 10/18/24
[2024-10-23 15:38] LABS: Hematocrit 28.3 % (35.0-49.0); Hemoglobin 9.8 g/dL (12.0-15.0); Immature Granulocyte Percent A 0.3 % (0.0-0.0); Lymphocytes Absolute Auto 1.75 K/mm3 (1.10-4.50); Mean Corpuscular HGB Conc 34.6 g/dL (32-36); Mean Corpuscular Hemoglobin 30.9 pg (27.0-31.0); Mean Corpuscular Volume 89.3 fL (78.0-102.0); Nucleated Red Blood Cells Absolute Auto 0.00 K/mm3 (0.00-0.00); Nucleated Red Blood Cells Perc 0.0 % (0-0.0); Platelet Count Result 274 K/mm3 (150-420); Red Blood Count 3.17 M/mm3 (4.20-5.40); White Blood Count 12.4 K/mm3 (4.8-10.8)
[2024-10-23 15:51] LABS: Alanine Aminotransferase 11 U/L (6-35); Albumin Level 3.8 g/dL (3.5-5.1); Alkaline Phosphatase 48 U/L (38-126); Anion Gap 9 mmol/L (4-12); Aspartate Amino Transferase 30 U/L (14-36); Bilirubin,Total 0.7 mg/dL (0.2-1.3); Blood Urea Nitrogen 6 mg/dL (7-17); Calcium 9.2 mg/dL (8.4-10.2); Carbon Dioxide 23 mmol/L (22-30); Chloride 105 mmol/L (98-107); Estimated CRCL calculation 147 ml/min; Estimated Glomerular Filt Rate > 60; Glucose 79 mg/dL (65-110); Osmolality Calculated 280 mOsm/kg (285-295); Potassium 3.8 mmol/L (3.4-5.0); Sodium 137 mmol/L (137-145); Total Protein 6.9 g/dL (6.3-8.2)
[2024-10-23 16:05] LABS: INR 0.9; Partial Thromboplastin Time 24.2 Sec (23.9-30.70); Prothrombin Time 10.5 Seconds (9.50-12.1)
[2024-10-23 16:06] VITALS: BP 115/84; PULSE 84; RESP 20; TEMP 36.8; O2SAT 99
== END 2024-10-23 16:16 | disposition home or self-care (01) ==
PROVIDERS: Emergency Provider Internal Medicine Critical Care Medicine; Referring Provider Internal Medicine
DX: O20.0 Threatened abortion (principal); O45.92 Premature separation of placenta, unspecified, second trimester; O99.012 Anemia complicating pregnancy, second trimester; Z3A.19 19 weeks gestation of pregnancy
CPT/HCPCS: 36415; 76815; 80053; 81001; 85025; 85610; 85730; 99284